=== PATIENT | female | born 1945 | race Caucasian/White ===

== ENCOUNTER 2018-01-16 16:42 | Emergency (ER) | payer MEDICARE, MEDICAID ==
--- NOTE | 2018-01-16 17:27 | RAD ---
ONE VIEW PELVIS: 01/16/18 HISTORY: Fall. Pain. COMPARISON: None. FINDINGS: There is a left hip arthroplasty. On this single projection, the contour of the right femoral head is maintained. The right hip joint space is preserved. Sacroiliac joints are patent and symmetric. Sacr al ala are preserved. Bony pelvis is intact. IMPRESSION: No fracture. POS: [facility]
--- NOTE | 2018-01-16 17:29 | CT ---
NONCONTRAST HEAD CT: 01/16/18 HISTORY: Status post fall. Landed on hard surface. Posttraumatic pain. COMPARISON: None. TECHNIQUE: Noncontrast head CT is performed from skull base to skull vertex. FINDINGS: No parenchymal hemorrhage. No extra-axial hematoma. No midline shift. Basilar cisterns are patent. Br ain volume, age appropriate. Cortical peace-white matter differentiation is preserved. Ventricles and sulci are patent and symmetric. Adequate aeration of the mastoid air cells. Minimal mu cosal thickening of the ethmoid air cells. Calvarium is intact. IMPRESSION: No intracranial posttraumatic sequela. POS: [facility]
== END 2018-01-16 17:36 | disposition home or self-care (01) ==
LOC: SCSER 16:42
DX: S30.0XXA Contusion of lower back and pelvis, initial encounter (principal); R29.6 Repeated falls; G43.909 Migraine, unspecified, not intractable, without status migrainosus; F41.9 Anxiety disorder, unspecified; M81.0 Age-related osteoporosis without current pathological fracture; W19.XXXA Unspecified fall, initial encounter
CPT/HCPCS: 70450; 72170

== ENCOUNTER 2018-02-08 09:19 | Outpatient (CLI) | payer MEDICARE, MEDICAID ==
--- NOTE | 2018-02-08 15:40 | NM ---
THREE PHASE BONE SCAN: 02/08/18 HISTORY: Patient fell yesterday with left rib and left hip pain. Examination is performed using 29 millicuries 99m technetium MDP administered intravenously. A three phase bone scan was performed of the pelvis. Whole body bone scan was also performed. Comparison is made to an AP pelvis of 01/16/18 and a thoracic spine series of 12/29/16 as well as an 04/24 10/05 bone scan. The angiographic portion of the study is unremarkable. Once again there is some increased uptake near the tip of the femoral component of the prosthesis. This is a stable finding as compared to the 2013 study. This is probably largely related to bony buttressing related to the lateral position of the t ip of the femoral prosthesis. IN addition, there is some increased uptake of the T8 vertebral body level corresponding to an area o f vertebroplasty. There is also increased uptake within an anterior right rib which appears to be marybeth roximately the 8th rib which suggests an acute injury. IMPRESSION: 1. Right anterior approximately the 8th rib area of increased uptake which is felt to be most li merari on the basis of acute injury. 2. Stable appearance to the left hip prosthesis. 3. Vertebroplasty changes of T8. POS: [facility]
== END 2018-02-08 09:20 | disposition home or self-care (01) ==
LOC: NM 09:19
PROVIDERS: ATTEND Orthopaedic Surgery
DX: M25.552 Pain in left hip (principal); Z96.642 Presence of left artificial hip joint; Z98.1 Arthrodesis status
CPT/HCPCS: 78315; A9503

== ENCOUNTER 2018-04-12 08:19 | Inpatient (IN) | payer MEDICARE, MEDICAID ==
[2018-04-12 09:15] LABS: #Eosinphils 0.1 thou/uL (0.0-0.7); #Monocytes 0.5 thou/uL (0.11-0.59); #Neutrophils 4.3 thou/uL (1.40-6.50); %Basophils 0.2 % (0.0-1.0); %Eosinophils 2.2 % (0.0-10.0); %Lymphocytes 16.5 % (21.0-51.0); %Monocytes 8.7 % (0.0-10.0); %Neutrophils 72.4 % (42.0-75.0); Hemoglobin 13.2 g/dL (12.0-16.0); Mean Corpuscular HGB CONC 35.4 g/dL (32.0-36.0); Mean Corpuscular Volume 87.3 fL (78.0-98.0); Mean Platelet Volume 5.9 fL (7.4-10.4); Platelet Count 251 thou/uL (130-400); RBC Distribution Width 11.4 % (11.5-14.5); Red Blood Cell (RBC) Count 4.26 mill/uL (4.20-5.40)
[2018-04-12] MEDS ORDERED: Ondansetron HCl/PF 4 MG/2 ML Vial ONE (09:31)
[2018-04-12 09:33] LABS: ALT (SGPT) 14 U/L (8-55); AST (SGOT) 20 U/L (5-34); Albumin 4.3 g/dL (3.4-4.8); Alkaline Phosphatase 121 U/L (40-150); Anion Gap 15 mmol/L (10-20); BUN (Urea Nitrogen) 8 mg/dL (9.8-20.1); Bilirubin, Total 0.8 mg/dL (0.2-1.2); CK (CPK) 48 U/L (29-168); Calc. Creatinine Clearance 0 mL/min (70-130); Carbon Dioxide 19 mmol/L (23-31); Chloride 91 mmol/L (98-107); Estimated GFR-MDRD Greater than 90; Globulin 2.5 g/dL (2.4-3.5); Glucose 98 mg/dL (83-110); Lipase 10 U/L (8-78); Potassium 3.9 mmol/L (3.5-5.1); Protein, Total 6.8 g/dL (6.0-8.3); Sodium 121 mmol/L (136-145)
[2018-04-12 09:36] LABS: CKMB 1.2 ng/mL (0-6.6); Troponin I Less than 0.010 ng/mL (< 0.028)
--- NOTE | 2018-04-12 10:39 | CT ---
CT OF HEAD NONCONTRAST: COMPARISON: 01/16/18. CLINICAL HISTORY: Altered mental status. FINDINGS: There is age appropriate size of ventricular system. Mild chronic microvascular ischemic disease is present. No intracranial hemorrhage, mass effect, or midline shift. IMPRESSION: No acute intracranial abnormalities. POS: [facility]
[2018-04-12 11:20] LABS: Bilirubin Negative (Negative); Blood, Urine Negative (Negative); Clarity CLEAR (Clear); Glucose, Urine (Dipstick) Negative (Negative); Leukocyte Negative (Negative); Nitrite Negative (Negative); Protein, Urine (Dipstick) Negative (Neg-Trace); Specific Gravity, Urine 1.005 (1.002-1.036); Urobilinogen 0.2 mg/dL (0.2-1.0); pH, Urine 7.5 (5.0-9.0)
[2018-04-12] MEDS ORDERED: Acetaminophen 325 MG TAB PO PRN (12:15)
[2018-04-12] MEDS ORDERED: HYDROcodone/Acetaminophen 5/325 mg Tablet PO PRN ×2 (12:15)
[2018-04-12] MEDS ORDERED: Ondansetron HCl/PF 4 MG/2 ML Vial IVP PRN ×2 (12:15→13:21)
[2018-04-12] MEDS ORDERED: Ondansetron ODT 4 MG TAB SL PRN (12:15)
[2018-04-12 12:29] VITALS: BMI 26.8
[2018-04-12] MEDS ORDERED: Sodium Chloride 0.9% 1,000 ML IV SCH (13:30)
[2018-04-12] MEDS: HYDROcodone/Acetaminophen 10/325 mg Tablet PO PRN ×2 (14:04→21:26)
[2018-04-12 14:19] LABS: Anion Gap 15 mmol/L (10-20); BUN (Urea Nitrogen) 7 mg/dL (9.8-20.1); Calc. Creatinine Clearance 92 mL/min (70-130); Calcium 9.3 mg/dL (7.8-10.44); Carbon Dioxide 19 mmol/L (23-31); Chloride 95 mmol/L (98-107); Estimated GFR-MDRD Greater than 90; Glucose 107 mg/dL (83-110); Potassium 3.9 mmol/L (3.5-5.1); Sodium 125 mmol/L (136-145)
[2018-04-12] MEDS ORDERED: Nitroglycerin 0.4 MG TAB (25 Tab Bottle) SL PRN (15:54)
--- NOTE | 2018-04-12 15:55 | PDOC.EVN ---
Event Note - Event Note Event Note: called by RN for pt c/o anginal chest pain - reports typical pain that she has at home. VS normal, ecg ordered. Pt has ntg in the room - will have her take one. Ordering nitro here as well. RN to call back if pain is not relieved, any changes or any concerns. And will send ecg to where I am located. no further questions ecg reviewed - QTc is 502 - zofran stopped and reglan ordered for prn n/v. sinus rhythm, normal axis, normal intervals, no st changes. 16:46 - called RN who reports chest pain resolved immediately, no current needs. If pt has recurrent sx or atypical sx, will need to transfer to tele for evaluation. Pt's veneer joiner is Dr. Monahan/Zurich
[2018-04-12] MEDS ORDERED: Metoclopramide HCl 10 MG/2 ML VIAL IVP PRN (16:02)
[2018-04-12 16:26] LABS: Osmolality, Urine 114 mOsm/kg (300-900)
[2018-04-12 16:32] LABS: Sodium, Urine Less than 20 mmol/L (Not Available)
--- NOTE | 2018-04-12 18:47 | HP ---
DATE OF SERVICE: 04/12/2018 CHIEF COMPLAINT: Confusion. PRIMARY CARE PHYSICIAN: Dr. Fitch. HISTORY OF PRESENT ILLNESS: This is a 72-year-old female with history of Von Willebrand disease, arthritis, angina, anxiety, who presents to the emergency room due to "things were starting to happen again" and a feeling of generally "not with it." The patient reports it started with a trip to the dentist 4 days ago as she needed a tooth pulled. Prior to this, she met with her armed guard, Dr. Kelsey, prescription was provided for DDAVP due to the von Willebrand disease for which she took the day of the procedure and the following 2 days. She notes that yesterday she had fallen 4-5 times, felt incoherent, noticed visual problems, having loose stools, nausea and vomiting. Her phone was not working and she was unable to call anyone for assistance. She states that she woke up this morning and things continued to not feel right , for which she was able to contact her son, and ambulance was called. The patient reports a similar episode with this in conjunction with surgery in the past. She was hospitalized for it and required fluid restriction. She does report normally drinking a lot of water. No precipitating factors other than the DDAVP. The patient has been on and off of Prozac and recently resumed it at 10 mg at night. She denies any other change in her medications. Because she anticipated the dental procedure, she stopped her Lasix last month, which she said contributed to hyponatremia in the past. In the Emergency Room, the patient found to have sodium of 121. The nurse practitioner reported patient received 500 mL of normal saline en route to the emergency room and Hospitalist called for admission. The patient received 4 mg of Zofran. ALLERGIES: Multiple, 1. TYLENOL 2. ALENDRONATE. 3. CODEINE. 4. DULOXETINE. 5. FENTANYL. 6. KETOROLAC. 7. MEPERIDINE. 8. MORPHINE 9. MUSCLE RELAXANTS. 10. ALL NSAIDs. 11. OXYCODONE. 12. PENICILLIN. 13. PREGABALIN. 14. PROPOXYPHENE. 15. TALWIN. 16. VICODIN. 17. FIORINAL. 18. PENTAZOCINE. CURRENT MEDICATIONS: 1. Reconciled with the patient, Rafael, uncertain dosing 1-2 tablets at night as needed for leg pain. 2. Hydrocodone 10/325 at low she reports twice a day. 3. Lasix as needed, none recently. 4. Nitroglycerin as needed. 5. Prozac 10 mg at bedtime. 6. Pantoprazole 20 mg, although she recently stopped this. 7. DDAVP. PAST MEDICAL HISTORY: 1. Von Willebrand disease. 2. Angina. 3. Anxiety. 4. Osteoporosis. 5. Chronic headaches. PAST SURGICAL HISTORY: 1. Neck and back surgery. 2. Hip replacement. 3. Knee replacement. 4. Carpal tunnel release. 5. Hysterectomy. 6. Fibroma removal. 7. De Quervain's release. 8. Ulnar transposition. SOCIAL HISTORY: She lives alone. Her power of document review attorney is her son, Yair, and she reports her CODE STATUS: DO NOT RESUSCITATE and she is very clear about this. FAMILY HISTORY: Significant for cancer. REVIEW OF SYSTEMS: Positive for falls, nausea, vomiting, headache, a lump on her chest has been evaluated by her airset caster, Dr. Espinoza. Negative for chest pain, shortness of breath, abdominal pain or swelling. All remaining review of systems are reviewed and negative. PHYSICAL EXAMINATION: VITAL SIGNS: Blood pressure 135/85, temperature 97.8, pulse 67, respirations 16 , saturations 97% on room air. GENERAL: Awake, alert, responsive, in no apparent distress. She does get frustrated when she loses her train of thought. HEENT: Pupils are equal and round. Oral mucosa is pink, mildly pink and dry. There is a clot along the gums set of the tooth that was removed. NECK: Supple, nontender. LYMPHATICS: No palpable cervical or supraclavicular lymphadenopathy. LUNGS: Clear to auscultation bilateral. No audible wheezing, rhonchi or rales. HEART: Normal S1, S2, regular rate and rhythm, no audible murmurs. ABDOMEN: Soft. Present bowel sounds. Nontender, nondistended. EXTREMITIES: No clubbing, cyanosis, or edema. NEUROLOGIC: Moves arms and legs equally. PSYCHIATRIC: She is euthymic, alert and responsive. LABORATORY DATA: 1. CBC 6, 13.2, 37.2, 251. 2. Renal panel 121, 3.9, 91, 19, 8, 0.61, 98. 3. LFTs are negative. Urinalysis is present, ketones only, with a specific gravity of 1.005. 4. CT of the brain is personally reviewed, no acute abnormality. 5. Stool culture negative, stool negative for Campylobacter, Shiga and C. diff. IMPRESSION: 1. Hyponatremia secondary to syndrome of inappropriate antidiuretic hormone secretion from recent DDAVP use, resulting in mild encephalopathy and weakness, nausea, vomiting, and diarrhea. 2. Dehydration secondary to above. 3. Von Willebrand disease with recent DDAVP use. 4. Status post recent dental at her tooth extraction. 5. Osteoporosis. 6. Chronic headaches. 7. Angina - controlled with nitroglycerin 8. Anxiety. 9. Weakness and falls PLAN: 1. Admission to the hospital. 2. Fluid restriction. 3. The patient does appear clinically dry, we will start low rate IV fluids for 10 hours only with the goal of some hydration. 4. Treat nausea and vomiting of present, it is currently not, and monitor diarrhea. 5. Holding her home medications except for hydrocodone if needed. The patient with her current headache. States that she took Imitrex in the past. We will hold on this for now and see if ice or heating pad will help with the pain and have hydrocodone available. 6. Nephrology consult, urine osmolality and urine sodium test. 7. Physical Therapy for strengthening. 8. DVT prophylaxis with pneumatic compression devices. 9. Gastrointestinal prophylaxis not indicated. 10. Falls precautions. 11. CODE STATUS is [id number] and her medical power of document review attorney is her son, Yair. 12. The patient is at high risk given her age, comorbidities, and current presentation. I reviewed the plan of care with the patient. No questions or further needs at end of evaluation. NORMAD
[2018-04-12 19:12] LABS: Anion Gap 12 mmol/L (10-20); BUN (Urea Nitrogen) 10 mg/dL (9.8-20.1); Calc. Creatinine Clearance 78 mL/min (70-130); Calcium 8.9 mg/dL (7.8-10.44); Carbon Dioxide 21 mmol/L (23-31); Chloride 98 mmol/L (98-107); Estimated GFR-MDRD 77; Glucose 128 mg/dL (83-110); Potassium 3.6 mmol/L (3.5-5.1); Sodium 127 mmol/L (136-145)
[2018-04-12] MEDS: SUMAtriptan Succinate 50 MG TAB PO PRN (20:28)
--- NOTE | 2018-04-12 21:17 | PDOC.EVN ---
Event Note - Event Note Event Note: reviewed sodium levels and 127 - will d/c the IV fluids to avoid rapidly correcting. Discussed with Dr. Umaña this evening - multifactorial due to intravascular depletion and ddavp. He reports liberalizing fluid intake as well for to intravascular repletion. No further interventions at this time, will continue the q6h checks. Hand-off to Dr. Portillo - next check is around midnight - request to discuss with Dr. Umaña if sodium is >127.
--- NOTE | 2018-04-12 22:35 | CON ---
DATE OF CONSULTATION: 04/12/2018 CONSULTING PHYSICIAN: Leeroy Ernandez M.D. REQUESTING PHYSICIAN: Dr. Serra. REASON FOR CONSULTATION: Severe hyponatremia. IMPRESSION: Severe hyponatremia. This is likely multifactorial including intravascular depletion co mpounded by the recent use of DDAVP. PLAN: 1. Liberalize the fluid restriction. 2. Regular diet, high protein intake. 3. Gentle rehydration with normal saline. HISTORY OF PRESENT ILLNESS: History is that of 72-year-old female patient with Von Willebrand diseas e who was recently given DDAVP and presented here with severe symptomatic hyponatremia. The patient on presentation was noted with a sodium of 121 at home. The patient has fallen several times and fel t somewhat confused and foggy. At this time of dictation, patient is hemodynamically stable, much mo re alert. As a result of the severe hyponatremia, decision has been taken to involve Renal in the ma nagement of this case. PAST MEDICAL HISTORY: Significant for Von Willebrand disease for which patient gets DDAVP and osteop orosis. ALLERGIES: ACETAMINOPHEN, ALENDRONATE, FENTANYL, DULOXETINE, MEPERIDINE, KETOROLAC, MORPHINE, PREGAB KISHAN, PENTAZOCINE, PENICILLIN, TALWIN, and VICODIN. MEDICATIONS: Reviewed as documented on [employer]. FAMILY HISTORY: Not significantly related to presenting illness. PHYSICAL EXAMINATION: GENERAL: The patient was found not to be in any obvious distress noted with the following vital sign s. VITAL SIGNS: Afebrile with temperature 97.8, pulse 67, respiratory 16, O2 sat 97%, blood pressure 13 5/85. HEENT: Unremarkable. Moist oral mucosa. NECK: Supple. No conjunctival injection or icterus. CARDIOVASCULAR SYSTEM: First and second heart sounds were heard. RESPIRATORY SYSTEM: Clear to auscultation. DIGESTIVE SYSTEM: Revealed a benign abdomen with positive bowel sounds. EXTREMITIES: No peripheral edema. SKIN: No new gross rash. LYMPHATICS: No peripheral lymphadenopathy. SUMMARY: A 72-year-old female patient who presented here with severe hyponatremia in the context of intravascular depletion compounded by the recent use of DDAVP.
[2018-04-13 01:27] LABS: Anion Gap 11 mmol/L (10-20); BUN (Urea Nitrogen) 11 mg/dL (9.8-20.1); Calc. Creatinine Clearance 83 mL/min (70-130); Calcium 9.5 mg/dL (7.8-10.44); Carbon Dioxide 24 mmol/L (23-31); Chloride 105 mmol/L (98-107); Estimated GFR-MDRD 82; Glucose 103 mg/dL (83-110); Potassium 4.7 mmol/L (3.5-5.1); Sodium 135 mmol/L (136-145)
[2018-04-13] MEDS: SUMAtriptan Succinate 50 MG TAB PO PRN (03:25)
[2018-04-13 05:25] LABS: #Eosinphils 0.1 thou/uL (0.0-0.7); #Lymphocytes 1.5 thou/uL (1.20-3.40); #Monocytes 0.5 thou/uL (0.11-0.59); #Neutrophils 2.2 thou/uL (1.40-6.50); %Basophils 0.5 % (0.0-1.0); %Lymphocytes 34.5 % (21.0-51.0); %Monocytes 11.4 % (0.0-10.0); %Neutrophils 50.7 % (42.0-75.0); Hemoglobin 12.7 g/dL (12.0-16.0); Mean Corpuscular HGB CONC 35.3 g/dL (32.0-36.0); Mean Corpuscular Hemoglobin 31.5 pg (27.0-31.0); Mean Corpuscular Volume 89.1 fL (78.0-98.0); Mean Platelet Volume 6.1 fL (7.4-10.4); Platelet Count 271 thou/uL (130-400); RBC Distribution Width 11.9 % (11.5-14.5); Red Blood Cell (RBC) Count 4.04 mill/uL (4.20-5.40); White Blood Cell (WBC) Count 4.3 thou/uL (4.8-10.8)
[2018-04-13 07:49] VITALS: BP 118/82; TEMP 98.6
[2018-04-13 07:51] LABS: Anion Gap 10 mmol/L (10-20); BUN (Urea Nitrogen) 11 mg/dL (9.8-20.1); Calc. Creatinine Clearance 78 mL/min (70-130); Calcium 9.4 mg/dL (7.8-10.44); Carbon Dioxide 27 mmol/L (23-31); Chloride 104 mmol/L (98-107); Estimated GFR-MDRD 77; Glucose 94 mg/dL (83-110); Potassium 4.2 mmol/L (3.5-5.1); Sodium 137 mmol/L (136-145)
--- NOTE | 2018-04-13 11:47 | DIS ---
DATE OF ADMISSION: 04/12/2018 DATE OF DISCHARGE: 04/13/2018 CONSULTANTS: Dr. Umaña of Nephrology. MEDICATIONS DISCONTINUED: Prozac due to hyponatremia. MEDICATIONS TO CONTINUE: 1. Acyclovir 400 mg as needed. 2. Elavil, patient is uncertain of the dose, states that she takes 1-2 tablets at night as needed. She will continue her normal dosing at home. 3. Hydrocodone/acetaminophen 10/325 - 1 or 2 tablets as needed. 4. Nitroglycerin 0.4 mg sublingual as needed. 5. Protonix 40 mg once a day. FINAL DIAGNOSES: 1. Hyponatremia, multifactorial due to intravascular volume depletion, recent DDAVP use and possibly her other medication such as pantoprazole and Prozac, resolved. 2. Intravascular volume depletion, resolved. 3. Von Willebrand disease with recent DDAVP use. 4. Recent dental extraction. 5. Osteoporosis. 6. Anxiety. 7. Leukopenia, mild. 8. Angina. Ms. Kruger is a 72-year-old female with the above medical problems who presented to the emergency room with generally not feeling with it. She reports a dental visit last week with the use of DDAVP in preparation for tooth extraction and over the prior 24 hours or so noted that she felt incoherent, having diarrhea, nausea, vomiting, and falling. She was able to contact her son the following morning, EMS was called. In the emergency room, she was found to have sodium of 121. The patient admitted to the hospital, she was gently rehydrated here with less than 500 mL of normal saline, and written for a regular diet as well as fluids that were mildly restricted. When her sodium reached of 6 mEq, the IV fluids were stopped, and again she received less than 500 mL. Her sodium was checked every 6 hours, and overnight it corrected to 135 and this morning it has returned back to normal. This is considered an acute hyponatremia, with rapid physiologic correction. The patient had made a rapid recovery. This morning, she reports her memory is back to normal, her ability to ambulate and strength are normal. She denies any complaints or concerns. She also denies any further nausea, vomiting or diarrhea. Given the return to normal, the patient is being discharged to home. She is aware of signs and symptoms to watch for recurrent hyponatremia. She will not be on the DDAVP as her dental procedure is over, it is recommended that she be off of the Prozac at least until she can follow up with her primary care provider. She has signs and symptoms to watch out for, we discussed the rapid improvement as well as the risk that this can happen in the future. On day of admission patient had chest pain consistent with her known angina, which immediately responded to one dose of nitroglycerin. PHYSICAL EXAMINATION: VITAL SIGNS: On day of discharge, blood pressure 118/82, temperature 98.6, pulse 98, respirations 16, saturations 98% on room air. GENERAL: Awake, alert, responsive, in no apparent distress, able to speak in full sentences. LUNGS: Clear to auscultation bilateral. HEART: Normal S1, S2, regular rate and rhythm, no audible murmurs. ABDOMEN: Soft with present bowel sounds. Nontender, nondistended. EXTREMITIES: No edema. HASTINGS FINDINGS AND TEST RESULTS: 1. CBC today 4.3, 12.7, 36, 271. 2. Renal panel today 137, 4.2, 104, 27, 11, 0.74, 94 with a calcium of 9.4. Sodium trend 121 at 904 yesterday, 125 at 1345, 127 at 1818, 135 at 0052 today and 137 at 4:30 this morning. 3. LFTs were normal. 4. Urine culture shows normal skin marcella. 5. Stool culture negative stool culture. Preliminary results is many normal enteric marcella, C. diff, Campylobacter and Shiga toxin are negative. CT of the brain shows no acute abnormality. DIET: Regular and no fluid restriction. ACTIVITIES: Regular, patient does request physical therapy as an outpatient. FOLLOW UP: Request that she follow up with Dr. Fitch next week for a sodium recheck, discussion on outpatient physical therapy, and see if medication substitution is needed for prozac. I reviewed with patient this hospitalization, the multifactorial hyponatremia, the signs and symptoms to watch for and return to the hospital, as well as the importance of followup. She demonstrates understanding. CODE STATUS: DO NOT RESUSCITATE. The patient was very clear about this. FOLLOWUP: No questions or further needs at the end of evaluation. Total time coordinating discharge is 30 minutes. NEW
== END 2018-04-13 12:12 | disposition home or self-care (01) | DRG 644 ==
LOC: ERS 08:19 → T4-B 12:17
PROVIDERS: ADMIT Family Medicine; ATTEND Family Medicine
DX: E22.2 Syndrome of inappropriate secretion of antidiuretic hormone (principal); D68.0 Von Willebrand disease; E86.0 Dehydration; T47.1X5A Adverse effect of other antacids and anti-gastric-secretion drugs, initial encounter; T43.225A Adverse effect of selective serotonin reuptake inhibitors, initial encounter; T38.895A Adverse effect of other hormones and synthetic substitutes, initial encounter; M81.0 Age-related osteoporosis without current pathological fracture; F41.9 Anxiety disorder, unspecified; D72.819 Decreased white blood cell count, unspecified; I20.9 Angina pectoris, unspecified; Z66 Do not resuscitate; Z91.81 History of falling; G89.29 Other chronic pain; M54.9 Dorsalgia, unspecified; M19.90 Unspecified osteoarthritis, unspecified site; G43.909 Migraine, unspecified, not intractable, without status migrainosus
CPT/HCPCS: 36415; 36416; 70450; 80048; 80053; 81003; 82274; 82553; 83605; 83690; 83935; 84300; 84484; 85025; 87045; 87046; 87086; 87324; 87449; 87899; 93005; 93010; 96374; J2405

== ENCOUNTER 2018-06-25 12:51 | Outpatient (CLI) | payer MEDICARE, MEDICAID ==
--- NOTE | 2018-06-25 14:46 | RAD ---
CHEST TWO VIEWS: History: Dyspnea. Comparison: 08-23-15 FINDINGS: Lungs are clear. No pneumothorax or effusion. Cardiac silhouette and mediastinal contours are similar . There is cement in the midthoracic vertebrae, similar. IMPRESSION: No acute intrathoracic abnormality. POS: [facility]
== END 2018-06-25 12:52 | disposition home or self-care (01) ==
LOC: RAD 12:51
PROVIDERS: ATTEND Internal Medicine Critical Care Medicine
DX: R06.00 Dyspnea, unspecified (principal)
CPT/HCPCS: 71046

== ENCOUNTER 2018-08-07 12:29 | Outpatient (CLI) | payer MEDICARE, MEDICAID | END 2018-08-07 12:30 | disposition home or self-care (01) | LOC: CP 12:29 | PROVIDERS: ATTEND Internal Medicine Critical Care Medicine | DX: J45.909 Unspecified asthma, uncomplicated (principal); R05 Cough | CPT/HCPCS: 94060; 94727; 94729 ==

== ENCOUNTER 2018-11-13 11:08 | Outpatient (CLI) | payer MEDICARE, MEDICAID ==
--- NOTE | 2018-11-13 12:24 | MRI ---
MRI BRAIN WITH AND WITHOUT CONTRAST: DATE: 11-13-18 HISTORY: 73-year-old female with mild cognitive impairment. G31.84 TECHNIQUE: Multiple sequences obtained in axial, sagittal, and coronal planes; pre and post IV injection of gado linium-based contrast agent: 14 mL MultiHance. FINDINGS: There are contiguous rims of periventricular white matter T2-hyperintensity. There are small patchy f ocal T2 hyperintensities in the brittney. There are scattered tiny focal T2 hyperintense foci a few mm in size each, in the winn radiata and centrum semiovale. There is no evidence of moderate size or lar ge cortical infarction of any age. There is no restricted diffusion, recent or remote intraaxial hemo rrhage, mass effect, midline shift, mass, edema, or extraaxial fluid collection. Ventricles are lyric l in size and configuration. 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 Otherwise, there is no abnormal enhancement. IMPRESSION: 1. Mild chronic ischemic white matter changes, not unusual for age 73 years. 2. Otherwise negative. KARY Pete POS: [facility]
--- NOTE | 2018-11-13 14:39 | PET ---
PET SCAN DEMENTIA CT HEAD NOCONTRAST: CLINICAL HISTORY: Mild cognitive impairment in 73-year-old female. RADIOPHARMACEUTICAL: 12.8 mCi [id number] IV. There is appropriate biodistribution of radiotracer activity. FINDINGS: There is symmetric uptake of radiotracer within the brain parenchyma bilaterally. There are no signif icant photopenic defects identified throughout the cerebral cortex. Noncontrast CT head exam reveals no evidence of intracranial mass effect or midline shift. There is e vidence of chronic ischemic disease. IMPRESSION: 1. Symmetric cortical uptake of radiotracer activity within each cerebral hemisphere without signifi cant photopenic regions identified to confirm dementia complex. 2. CT head portion of the exam does reveal evidence of microvascular ischemic disease. POS: [facility]
== END 2018-11-13 11:09 | disposition home or self-care (01) ==
LOC: MRI 11:08
PROVIDERS: ATTEND Psychiatry & Neurology Neurology
DX: G31.84 Mild cognitive impairment of uncertain or unknown etiology (principal); I67.82 Cerebral ischemia
CPT/HCPCS: 70553; 78608; 82565; A9552

== ENCOUNTER 2019-01-23 08:23 | Outpatient (CLI) | payer MEDICARE, MEDICAID ==
--- NOTE | 2019-01-23 09:13 | RAD ---
CERVICAL SPINE 7 VIEWS INCLUDING FLEXION AND EXTENSION LATERAL VIEWS AND OBLIQUE VIEWS: HISTORY: Cervical spondylosis without myelopathy. FINDINGS: Anterior cervical fusion changes at C5-C6 and disk fusion changes at C6-C7. Minimal stable anterolis thesis of C4 on C5 showing little change form 11/10/2015 CT. T1 is partially obscured on the lateral view and the tip of the odontoid and portions of C1 are obscured on the AP open mouth view. Generali zed facet arthrosis. No prevertebral soft tissue swelling. IMPRESSION: Postoperative changes. Mild stable anterolisthesis of C4 on C5. Generalized spondylosis. POS: [facility]
--- NOTE | 2019-01-23 10:10 | MRI ---
MRI CERVICAL SPINE: HISTORY: Cervical spondylosis without myelopathy. FINDINGS: Multiplanar multisequence noncontrast enhanced MRI images cervical spine obtained. The spinal cord is unremarkable with no evidence of cord masses or lesions. There is anterior fusion of C5 and C6 using anterior fusion fusion plates. C2-3: Unremarkable. C3-4: There is moderate right C3-4 neural foraminal narrowing due to uncovertebral osteophyte hypertr ophy. There is a mild central disc bulge. The left neural foramen is patent. C4-5: There is some disc desiccation seen. There is a mild broad-based disc bulge seen. Moderate righ t C4-5 neural foraminal narrowing seen due to uncal vertebral osteophyte hypertrophy. The left neural foramen is patent. C5-6: ACDF plates and screws in place. The central canal is patent. There is moderate left and modera te to severe right C5-6 neural foraminal narrowing due to osteophyte encroachment. C6-7: There is a mild broad-based central disc bulge resulting in moderate central thecal sac joanne darell. The spinal cord is unremarkable. Moderate left C6-7 neural foraminal narrowing is seen. The right neural foramen is patent. C7-T1: Unremarkable. IMPRESSION: Multilevel right C5-6 neural foraminal narrowing. Transcribed Date/Time: 01/23/2019 11:08 AM
== END 2019-01-23 08:24 | disposition home or self-care (01) ==
LOC: BICMRI 08:23
PROVIDERS: ATTEND Anesthesiology Pain Medicine
DX: M47.812 Spondylosis without myelopathy or radiculopathy, cervical region (principal); M47.814 Spondylosis without myelopathy or radiculopathy, thoracic region; M43.12 Spondylolisthesis, cervical region; M48.02 Spinal stenosis, cervical region; Z98.890 Other specified postprocedural states
CPT/HCPCS: 72052; 72141

== ENCOUNTER 2019-08-04 08:09 | Outpatient (CLI) | payer MEDICARE, MEDICAID ==
--- NOTE | 2019-08-04 10:30 | MRI ---
MRI OF LUMBAR SPINE WITH AND WITHOUT CONTRAST: DATE: 08/04/2019. COMPARISON: 01/05/2016. TECHNIQUE: Multiplanar multisequence MR imaging of the lumbar spine obtained with and without contrast. HISTORY: Right-sided pain, lumbar spine radiculopathy. FINDINGS: The sagittal STIR imaging demonstrates no focal area of osseous marrow edema. On the basis of 5 lumbar-type vertebral bodies, conus medullaris terminates at T12-L1. T12-L1: There is mild bilateral facet hypertrophy. There is a small right paracentral disc protrusion with no central canal or neural foraminal stenosis. L1-2: Mild bilateral facet hypertrophy, left greater than right. No significant central canal or neur al foraminal stenosis. L2-3: There is disc space narrowing and disc desiccation with mild disc bulge. Bilateral facet hypert rophy and hypertrophy of the ligamentum flavum. Small disc protrusion noted in the right foraminal region. No significant central canal or neural foraminal stenosis. L3-4: There is a foraminal annular tear on the left. There is mild disc space narrowing and disc hans ccation with mild disc bulge and bilateral facet hypertrophy, right greater than left. There is no significant central canal or neural foraminal stenosis. L4-5: There is disc space narrowing and disc desiccation with degenerative endplate change and mild b ilateral facet hypertrophy. There is mild bilateral neural foraminal stenosis. No significant central canal stenosis. L5-S1: There is disc space narrowing and disc desiccation with mild disc bulge. Bilateral facet hyper trophy is present. There is moderate bilateral neural foraminal stenosis, left greater than right. No significant central canal stenosis. Multiple benign hemangiomata are noted within the lumbar spine. Imaged retroperitoneal structures demonstrate no acute findings. The postcontrast imaging demonstrates no abnormal enhancement involving the contents of the thecal sa c. No significant abnormal enhancement is seen involving the imaged osseous structures or the intervertebral discs. Bilateral laminectomy noted at L4-5. IMPRESSION: Postoperative and degenerative change within the lumbar spine as described above. Transcribed Date/Time: 08/04/2019 10:49 AM
--- NOTE | 2019-08-04 10:37 | MRI ---
MRI OF CERVICAL SPINE WITH AND WITHOUT CONTRAST: DATE: 08/04/2019. COMPARISON: 01/23/2019. HISTORY: Right-sided spinal pain with radiculopathy. TECHNIQUE: Multiplanar multisequence MR imaging of the cervical spine with and without contrast. FINDINGS: Anterior discectomy and fusion hardware present at C5-6. There is mild anterolisthesis at C4-5 measur ing approximately 3 mm. There is mild degenerative change at the atlantoaxial interspace. C2-3: There is bilateral facet and uncovertebral osteophyte formation, right greater than left. There is a small central disc protrusion with no associated central canal or neural foraminal stenosis. C3-4: There is facet and uncovertebral osteophyte formation bilaterally. There is a small central dis c protrusion with no significant central canal or neural foraminal stenosis. C4-5: There is disc space narrowing and disc desiccation with mild disc bulge and a small central dis c protrusion causing partial effacement of the ventral thecal sac and minimal central canal stenosis. There is significant bilateral facet and uncovertebral osteophyte formation, right greater than left. Mild bilateral neural foraminal stenosis, right greater than left. C5-6: Evaluation is somewhat limited secondary to artifact from anterior discectomy and fusion hardwa re. No significant central canal stenosis. Prominent facet and uncovertebral osteophyte formation causes severe bilateral neural foraminal stenosis. C6-7: Facet and uncovertebral osteophyte formation on the left causes moderate/severe left neural for aminal stenosis. There is at least moderate right-sided neural foraminal stenosis on the basis of facet and uncovertebral osteophyte formation as well. No significant central canal stenosis. C7-T1: No significant central canal or neural foraminal stenosis. No focal area of abnormal signal intensity is identified within the cervical cord. The postcontrast imaging demonstrates no abnormal enhancement. IMPRESSION: Postoperative and degenerative change noted within the cervical spine as detailed above. Transcribed Date/Time: 08/04/2019 11:07 AM
== END 2019-08-04 08:10 | disposition home or self-care (01) ==
LOC: TBSIIMAG 08:09
PROVIDERS: ATTEND Neurological Surgery
DX: M47.26 Other spondylosis with radiculopathy, lumbar region (principal); M47.22 Other spondylosis with radiculopathy, cervical region; Z98.890 Other specified postprocedural states
CPT/HCPCS: 72156; 72158; 82565

== ENCOUNTER 2020-06-02 08:23 | Outpatient (CLI) | payer MEDICARE, MEDICAID ==
--- NOTE | 2020-06-02 09:25 | RAD ---
RIGHT HIP 2 VIEWS: Date: 06/02/2020 HISTORY: Right hip pain. FINDINGS: There are mild arthritic changes of the hip joint. There are no signs of fracture. Moderate arthritic changes of the lower lumbar spine are seen. The bones appear slightly demineralized. IMPRESSION: Mild arthritic changes of the hip. POS: [facility]
== END 2020-06-02 08:24 | disposition home or self-care (01) ==
LOC: BICRAD 08:23
PROVIDERS: ATTEND Anesthesiology Pain Medicine
DX: M16.11 Unilateral primary osteoarthritis, right hip (principal)

== ENCOUNTER 2020-08-15 13:13 | Outpatient (CLI) | payer MEDICARE, MEDICAID ==
--- NOTE | 2020-08-15 14:12 | RAD ---
PA AND LATERAL CHEST: Date: 08/15/2020 HISTORY: Dyspnea. COMPARISON: 06/25/2018. FINDINGS: Heart size within normal limits. There is some atherosclerotic change of the aorta. Chronic appearing lung changes are seen. Vertebroplasty changes again noted. IMPRESSION: Chronic lung change. Stable chest. POS: AH
== END 2020-08-15 13:14 | disposition home or self-care (01) ==
LOC: BICRAD 13:13
PROVIDERS: ATTEND Internal Medicine Critical Care Medicine
DX: R06.00 Dyspnea, unspecified (principal)
CPT/HCPCS: 71046

== ENCOUNTER 2020-11-02 08:14 | Outpatient (CLI) | payer MEDICARE, MEDICAID | END 2020-11-02 08:15 | disposition home or self-care (01) | LOC: BICMRI 08:14 | PROVIDERS: ATTEND Anesthesiology Pain Medicine | DX: S22.060A Wedge compression fracture of T7-T8 vertebra, initial encounter for closed fracture (principal); M51.24 Other intervertebral disc displacement, thoracic region; R60.0 Localized edema; Z98.890 Other specified postprocedural states | CPT/HCPCS: 72146 ==

== ENCOUNTER 2022-06-27 07:04 | Outpatient (CLI) | payer OTHER, MEDICAID ==
[2022-06-27] MEDS ORDERED: Iopamidol-370 76% 500 ML 1 ML ONE (14:49)
== END 2022-06-27 07:05 | disposition home or self-care (01) ==
LOC: BICCT 07:04
PROVIDERS: ATTEND Physician Assistant Medical
DX: R10.33 Periumbilical pain (principal); R11.10 Vomiting, unspecified; K59.00 Constipation, unspecified
CPT/HCPCS: 74177; 82565; Q9967

== ENCOUNTER 2023-01-05 09:27 | Emergency (ER) | payer MEDICARE, MEDICAID ==
[2023-01-05 09:53] LABS: #Eosinphils 0.2 thou/uL (0.0-0.7); #Lymphocytes 1.5 thou/uL (1.20-3.40); #Monocytes 0.4 thou/uL (0.11-0.59); #Neutrophils 2.4 thou/uL (1.40-6.50); %Basophils 0.3 % (0.0-1.0); %Eosinophils 4.9 % (0.0-10.0); %Lymphocytes 32.3 % (21.0-51.0); %Monocytes 7.9 % (0.0-10.0); %Neutrophils 54.6 % (42.0-75.0); Hemoglobin 12.7 g/dL (12.0-16.0); Mean Corpuscular HGB CONC 33.3 g/dL (32.0-36.0); Mean Corpuscular Hemoglobin 29.7 pg (27.0-31.0); Mean Corpuscular Volume 89.1 fl (78.0-98.0); Mean Platelet Volume 6.7 fL (7.4-10.4); Platelet Count 236 10x3/uL (130-400); RBC Distribution Width 11.8 % (11.5-14.5); Red Blood Cell (RBC) Count 4.29 mill/uL (4.20-5.40); White Blood Cell (WBC) Count 4.5 10x3/uL (4.8-10.8)
[2023-01-05 10:16] LABS: ALT (SGPT) 11 U/L (8-55); AST (SGOT) 18 U/L (5-34); Albumin 4.2 g/dL (3.4-4.8); Alkaline Phosphatase 92 U/L (40-110); Anion Gap 15 mmol/L (10-20); BUN (Urea Nitrogen) 9 mg/dL (9.8-20.1); Bilirubin, Total 0.4 mg/dL (0.2-1.2); Calc. Creatinine Clearance 0 mL/min (70-130); Calcium 9.5 mg/dL (7.8-10.44); Carbon Dioxide 23 mmol/L (23-31); Chloride 107 mmol/L (98-107); Estimated GFR 72; Globulin 2.7 g/dL (2.4-3.5); Glucose 93 mg/dL (83-110); Potassium 3.7 mmol/L (3.5-5.1); Protein, Total 6.9 g/dL (5.8-8.1); Sodium 141 mmol/L (136-145)
== END 2023-01-05 12:11 | disposition home or self-care (01) ==
LOC: ERS 09:27
DX: R29.6 Repeated falls (principal); D72.819 Decreased white blood cell count, unspecified
CPT/HCPCS: 36415; 70450; 72125; 80053; 85025; 93005; 94760

== ENCOUNTER 2023-10-10 12:17 | Outpatient (CLI) | payer MEDICARE, MEDICAID | END 2023-10-10 12:18 | disposition home or self-care (01) | LOC: SCSMRI 12:17 | PROVIDERS: ATTEND Nurse Practitioner Family | DX: S22.000A Wedge compression fracture of unspecified thoracic vertebra, initial encounter for closed fracture (principal); M47.22 Other spondylosis with radiculopathy, cervical region; M48.02 Spinal stenosis, cervical region; M48.8X2 Other specified spondylopathies, cervical region; G95.89 Other specified diseases of spinal cord; Z98.1 Arthrodesis status | CPT/HCPCS: 72141; 72157; 82565 ==

== ENCOUNTER 2023-11-19 07:46 | Outpatient (CLI) | payer MEDICARE, MEDICAID | END 2023-11-19 07:47 | disposition home or self-care (01) | LOC: SCSMRI 07:46 | PROVIDERS: ATTEND Psychiatry & Neurology Neurology | DX: M48.061 Spinal stenosis, lumbar region without neurogenic claudication (principal); M47.816 Spondylosis without myelopathy or radiculopathy, lumbar region; M47.817 Spondylosis without myelopathy or radiculopathy, lumbosacral region | CPT/HCPCS: 72148 ==

== ENCOUNTER 2024-07-20 07:15 | Outpatient (CLI) | payer MEDICARE, MEDICAID | END 2024-07-20 07:16 | disposition home or self-care (01) | LOC: SCSMRI 07:15 | PROVIDERS: ATTEND Psychiatry & Neurology Neurology | DX: R41.3 Other amnesia (principal); J34.89 Other specified disorders of nose and nasal sinuses; R93.0 Abnormal findings on diagnostic imaging of skull and head, not elsewhere classified | CPT/HCPCS: 36415; 70553; 76376; 82565 ==

== ENCOUNTER 2025-04-22 14:32 | Emergency (ER) | payer MEDICARE, MEDICAID | END 2025-04-22 17:34 | disposition home or self-care (01) | LOC: ERS 14:32 | DX: S00.12XA Contusion of left eyelid and periocular area, initial encounter (principal); W01.198A Fall on same level from slipping, tripping and stumbling with subsequent striking against other object, initial encounter; Z55.6 Problems related to health literacy | CPT/HCPCS: 70450; 72125 ==